=== PATIENT | female | born 1960 | race African-American/Black ===

== ENCOUNTER → 2018-08-08 | Outpatient (CLI) | payer OTHER | LOC: CAT 14:27 | DX: Z13.6 Encounter for screening for cardiovascular disorders (principal); E78.00 Pure hypercholesterolemia, unspecified; Z82.49 Family history of ischemic heart disease and other diseases of the circulatory system ==

== ENCOUNTER → 2018-08-29 | Outpatient (CLI) | payer BC ==
--- NOTE | 2018-08-29 12:17 | 2DMMODE ---
[facility] [place] [place] [address] 2 D/M-MODE ECHOCARDIOGRAM Name: BENTLEY KENNEDY Room #: REG [facility]#: [id number] ������������� Admission: 08/29/18 ������������� Attend Phys: Nayan Buck MD Discharge: ��� ������������� ��� Date of : 64 Date of Service: 08/29/18 1217 �� Report #: [id number] �������� ��������������������������������������������[id number] THIS REPORT FOR: //name// APPROVED REPORT Study performed: 08/29/2018 10:02:20 EXAM: Comprehensive 2D, Doppler, and color-flow Echocardiogram Patient Location: Out-Patient Status: routine BSA: 2.09 HR: 88 bpm BP: 125/70 mmHg Rhythm: NSR Other Information Study Quality: Good Indications Dyspnea Hypertension/HDD 2D Dimensions RVDd: 28.68 mm IVSd: 16.46 (7-11mm) LVOT Diam: 22.68 (18-24mm) LVDd: 33.53 mm PWd: 13.69 (7-11mm) Ascending Ao: 39.95 (22-36mm) LVDs: 21.96 (25-40mm) Aortic Root: 38.32 mm IVC: 13.00 mm Volumes Left Atrial Volume (Systole) Single Plane 4CH: 21.68 mL LA ESV Index: 12.76 mL/m2 Aortic Valve AoV Peak Buzz.: 1.19 m/s AO Peak Gr.: 5.97 mmHg LVOT Max P.81 mmHg LVOT Max V: 1.10 m/s JOAN Vmax: 3.71 cm2 Mitral Valve E/A Ratio: 0.6 MV Decel. Time: 121.35 ms [facility] [address] [place] [address] 2 D/M-MODE ECHOCARDIOGRAM Name: BENTLEY KENNEDY Room #: REG [facility]#: [id number] ������������� Admission: 08/29/18 ������������� Attend Phys: Nayan Buck MD Discharge: ��� ������������� ��� Date of : 64 Date of Service: 08/29/18 1217 �� Report #: [id number] �������� ��������������������������������������������[id number] MV E Max Buzz.: 0.57 m/s MV A Buzz.: 0.99 m/s MV PHT: 35.19 ms IVRT: 169.17 ms Pulmonary Valve PV Peak Buzz.: 0.92 m/s PV Peak Gr.: 3.38 mmHg OK End Vmax: 1.03 m/s Tricuspid Valve TR Peak Buzz.: 1.82 m/s RAP Estimate: 5.00 mmHg TR Peak Gr.: 13.31 mmHg PA Pressure: 18.00 mmHg Left Ventricle The left ventricle is normal size. Mild concentric left ventricular hypertrophy. The left ventricular systolic function is normal. The left ventricular ejection fraction is within the normal range. LVEF is 55-60%. Mild diastolic dysfunction is present (impaired relaxation pattern). Right Ventricle The right ventricle is normal size. The right ventricular systolic function is normal. Atria The left atrium size is normal. The right atrium size is normal. Aortic Valve The aortic valve is normal in structure. No aortic regurgitation is present. There is no aortic valvular stenosis. Mitral Valve The mitral valve is normal in structure. There is no mitral valve regurgitation noted. No evidence of mitral valve stenosis. Tricuspid Valve The tricuspid valve is normal in structure. Mild tricuspid regurgitation. Estimated PAP of 18 mmHg. Pulmonic Valve Pulmonic valve is not well visualized. Moderate pulmonic regurgitation. [employer] [facility] [address] [place] [address] 2 D/M-MODE ECHOCARDIOGRAM Name: BENTLEY KENNEDY Room #: REG [facility]#: [id number] ������������� Admission: 08/29/18 ������������� Attend Phys: Nayan Buck MD Discharge: ��� ������������� ��� Date of : 64 Date of Service: 08/29/18 1217 �� Report #: [id number] �������� ��������������������������������������������[id number] Aortic root is mildly dilated measuring 3.8 cm. The ascending aorta is mildly dilated measuring 4.0 cm. IVC is normal in size and collapses >50% with inspiration. Pericardium There is no pericardial effusion. <Conclusion> The left ventricle is normal size. Mild concentric left ventricular hypertrophy. The left ventricular systolic function is normal. Mild diastolic dysfunction is present (impaired relaxation pattern). The right ventricle is normal size. The left atrium size is normal. The right atrium size is normal. The aortic valve is normal in structure. The mitral valve is normal in structure. Mild tricuspid regurgitation. Estimated PAP of 18 mmHg. ��������������������������������������������� <ELECTRONICALLY SIGNED> ���������������������������������������� By: Nayan Buck MD ��������������������������������������������� 08/29/18 121 16 16 Nayan Buck MD /INF
--- NOTE | 2018-08-29 12:20 | EXE ---
[facility] [place] [address] STRESS ECHOCARDIOGRAM Name: BENTLEY KENNEDY [id number] ������������� Admission: 08/29/18 ������������� Attend Phys: Nayan Buck MD Discharge: ��� ������������� ��� Date of : 64 Date of Service: 08/29/18 1220 �� Report #: [id number] �������� ��������������������������������������������[id number] THIS REPORT FOR: //name// APPROVED REPORT Study performed: 08/29/2018 10:57:32 Exam: Stress Echocardiogram Indication: Dyspnea Patient Location: Out-Patient Stress Nurse: Flor Michael RN Status: routine Ht: 6 ft 2 in HR: 82 bpm BP: 125/70 mmHg Rhythm: NSR Medical History Medications: Listed on worksheet Allergies: Listed on worksheet Cardiac Risk Factors: HTN, Hyperlipidemia, Diabetes. Procedure The patient underwent an Exercise Stress Test using the Miles Protocol. Blood pressure, heart rate, and EKG were monitored. An Echocardiogram was performed by bicycle service technician in four stages in quad fashion. At peak stress, four selected images were obtained and placed side by side with resting images for comparison. Stress Test Details Stress Test: Exercise stress testing was performed using a Miles protocol. HR Resting HR: 82 bpm Max Heart Rate (APMHR): 164 bpm Max HR Achieved: 164 bpm Target HR (85% APMHR): 139 bpm % of APMHR: 100 Recovery HR: 107 bpm HR response to stress: Normal HR response to stress BP Resting BP: 125/70 mmHg Max BP: 162/80 mmHg Recovery BP: 138/80 mmHg BP response to stress: Normal blood pressure response to stress. [facility] [address] [place] [address] STRESS ECHOCARDIOGRAM Name: BENTLEY KENNEDY Room #: REG [facility]#: [id number] ������������� Admission: 08/29/18 ������������� Attend Phys: Nayan Buck MD Discharge: ��� ������������� ��� Date of : 64 Date of Service: 08/29/18 1220 �� Report #: [id number] �������� ��������������������������������������������[id number] ECG Resting ECG: Sinus Rhythm Stress ECG: Sinus Rhythm, nonspecific ST-T abnormalities ST Change: Non-ischemic Clinical Reason for Termination: Maximal effort Stress Symptoms: Dyspnea Exercise duration: 5 min 46 sec Exercise capacity: 7.20 METs Pre-Stress Echo The resting Echocardiogram showed normal left ventricular contractility with an estimated Ejection Fraction of about 55-60%. No significant valvular abnormalities noted. Post-Stress Echo The stress Echocardiogram showed normal left ventricular contractility with an estimated Ejection Fraction of about >70%. Normal augmentation of wall motion in all segments on post stress images. Clinical Normal augmentation of myocardial wall segments using a 17 segment model. No clinical or ECG evidence for ischemia. Conclusion Clinical Response: Non-ischemic Exercise Capacity: Below Average Stress ECG Response: Non-ischemic Stress Echo Images: Non-ischemic The left ventricle is normal in size and wall thickness in both the rest and stress images. <Conclusion> The left ventricle is normal in size and wall thickness in both the rest and stress images. ��������������������������������������������� <ELECTRONICALLY SIGNED> ���������������������������������������� By: Nayan Buck MD ��������������������������������������������� 08/29/18 1220 1220 1220 Nayan Buck MD /INF
== END ==
LOC: CV 07:25
DX: I07.1 Rheumatic tricuspid insufficiency (principal); I10 Essential (primary) hypertension; E78.5 Hyperlipidemia, unspecified; E11.9 Type 2 diabetes mellitus without complications; Z88.5 Allergy status to narcotic agent; Z88.8 Allergy status to other drugs, medicaments and biological substances; Z91.041 Radiographic dye allergy status

== ENCOUNTER 2019-09-30 08:55 | Emergency (ER) | payer OTHER ==
[~2019-09-30] VITALS: Ht 188 cm; Wt 83.0 kg
[2019-09-30 09:50] LABS: BASOPHILS 0.7 % (0.0-2.0); EOSINOPHILS 1.6 % (0.0-3.0); HEMATOCRIT 39.9 % (37.0-47.0); HEMOGLOBIN 13.7 gm/dL (12.0-15.0); LYMPHOCYTES 24.5 % (24.0-44.0); MCH 28.8 pg (26.0-34.0); MCHC 34.4 g/dL (28.0-37.0); MCV 83.8 fL (80.0-100.0); MONOCYTES 6.4 % (1.0-8.0); PLATELET COUNT 260 thou/uL (150-400); POLYS 66.8 % (36.0-66.0); RBC 4.77 mil/uL (4.20-5.00); RDW 13.3 % (10.5-14.5)
[2019-09-30 09:54] LABS: ANION GAP 13 mmol/L (7-16); BUN 19 mg/dL (7-18); CALCIUM 9.7 mg/dL (8.5-10.1); CHLORIDE 97 mmol/L (98-107); CO2 21 mmol/L (21-32); CREATININE 1.4 mg/dL (0.6-1.0); GLUCOSE 412 mg/dL (74-106); POTASSIUM 3.5 mmol/L (3.5-5.1); SODIUM 131 mmol/L (136-145)
[2019-09-30 10:03] LABS: TROPONIN-I <0.06 ng/mL (<0.06)
[2019-09-30] MEDS ORDERED: AMITRIPTYLINE H25 M2 PO (12:06)
[2019-09-30] MEDS ORDERED: BENAZEPRIL-HCT1 EA10 PO (12:06)
[2019-09-30] MEDS ORDERED: NORVASC5 MG PO (12:06)
[2019-09-30] MEDS ORDERED: HUMALOG KW100 UNIT/1 (12:06)
[2019-09-30] MEDS ORDERED: SIMVASTATIN40 MG PO (12:07)
[2019-09-30] MEDS ORDERED: TRESIBA FL100 UNIT/1 (12:07)
[2019-09-30] MEDS ORDERED: NEURONTIN 300300 M1 PO (12:07)
[2019-09-30] MEDS ORDERED: NORCO 5-325 TA1 EAC1 PO (13:59)
[2019-09-30] MEDS ORDERED: TESSALON PERLE100 MG PO (13:59)
[2019-09-30] MEDS ORDERED: SENNA-DOCUSATE1 EAC1 PO (13:59)
[2019-09-30 14:02] VITALS: BP 125/80
--- NOTE | 2019-09-30 16:25 | EKG ---
[facility] [place] [address] ELECTROCARDIOGRAM REPORT Name: BENTLEY KENNEDY Room #: DEP [facility]#: [id number] Admission: 09/30/19 Attend Phys: Discharge: 09/30/19 Date of : 64 Report #: [id number] THIS REPORT FOR: cc: Praful Canales James A. DO Lundgren, Craig H. MD [facility] THIS REPORT FOR: //name// [facility] ED Test Date: 2019-09-30 Test Time: 10:43:44 Pat Name: BENTLEY KENNEDY Department: Room: Gender: F Welfare Aide: : 1960 Requested By: Darryl Pitts Order Number: [id number] MD: Samuel Coy Measurements Intervals [place] Rate: 103 P: 2 OH: 200 QRS: -7 QRSD: 94 T: 39 QT: 342 QTc: 448 Interpretive Statements Sinus tachycardia Borderline prolonged OH interval LVH by voltage Minimal diffuse ST elevation, No previous ECG available for comparison Electronically Signed On 09-30-2019 16:24:03 CDT by Samuel Coy [email or web address] <ELECTRONICALLY SIGNED> By: Samuel Coy MD, FAC 09/30/19 1624 1043 1043 Samuel Coy MD, [facility] /EPI
== END 2019-09-30 14:14 | disposition home or self-care (01) ==
LOC: ER 08:55
PROVIDERS: Emergency Medicine
DX: J98.9 Respiratory disorder, unspecified (principal); E11.9 Type 2 diabetes mellitus without complications; I10 Essential (primary) hypertension; Z03.818 Encounter for observation for suspected exposure to other biological agents ruled out; Z79.899 Other long term (current) drug therapy; Z79.4 Long term (current) use of insulin; Z88.6 Allergy status to analgesic agent; Z88.1 Allergy status to other antibiotic agents; Z88.8 Allergy status to other drugs, medicaments and biological substances